=== PATIENT | female | born 1980 | race Caucasian/White ===

== ENCOUNTER → 2023-12-26 11:24 | Outpatient (REF) | payer BC, SELFPAY | LOC: WDC 11:24 | PROVIDERS: ATTENDING PHYSICIAN Family Medicine | DX: Z12.31 Encounter for screening mammogram for malignant neoplasm of breast (principal) | CPT/HCPCS: 77063; 77067 ==

== ENCOUNTER 2024-11-24 17:44 | Emergency (ER) | payer OTHER, SELFPAY ==
[2024-11-24 17:46] VITALS: BP 152/86
--- NOTE | 2024-11-24 20:47 | ED.GENMED ---
History of Present Illness
General
Chief Complaint: Skin Problem
Source: patient
Exam Limitations: none
Time Seen by Provider: 11/24/24 20:18
History of Present Illness
History of Present Illness:
44yoF with no significant past medical history presenting for evaluation of a neck mass. Patient has had a pea-sized lump in her right anterior neck for the past 5 years. She was in the car 3 days ago when she started to notice pain in the area.
The lump is now larger than it typically is and is tender. She went to urgent care yesterday and did not receive any answers. She called to try to get an appointment with vascular surgery today. She is otherwise asymptomatic and denies any
dysphagia, sore throat, fevers, shortness of breath.
Past History
Past History
ED Past Medical History: None
ED Past Surgical History: Negative Appendectomy
Social History
Tobacco: Non-smoker
Alcohol: None
Drug: None
Personal:
Living: with family
Employment: Employed
Family History
Family History: Other (Noncontributory)
Phy Exam
General Physical Exam
General Presentation: well appearing and no apparent distress
General age: appears stated age
General Skin: warm and dry
General Habitus: normal
General Mental: alert
ENT Exam
ENT Exam: normocephalic and other (There is a firm approx 2cm ovoid mass noted to the R anterior neck that is mobile and mildly tenderness. No erythema, warmth, fluctuance. )
Neurological Exam
Neurological Exam: alert
Skin Exam
Skin Exam: normal color and warm/dry
Psychiatric Exam
Psychiatric Exam: normal mood/affect
Course
Orders/Labs/Results
Orders:
Orders
11/24/24 20:35
US Thyroid/Neck/Head Urgent
Reason For Exam: US right anterior neck mass
Vital Signs
Initial and Last Documented VS:
Initial Vital Signs
Temp Pulse Resp BP Pulse Ox
98.2 F 78 16 152/86 100
11/24/24 17:46 11/24/24 17:46 11/24/24 17:46 11/24/24 17:46 11/24/24 17:46
Last Documented Vital Signs
Temp Pulse Resp BP Pulse Ox
98.2 F 78 16 125/82 100
11/24/24 17:46 11/24/24 22:25 11/24/24 17:46 11/24/24 22:25 11/24/24 22:25
MDM/Problems Addressed
Differential Diagnosis Includes:
44yoF here with a neck lump. Has had a small lump for several years that began painful and larger over the past few days. There is a firm mobile ovoid mass at the anterior neck on exam. No overlying erythema, warmth, or fluctuance to suggest
infection. Differential diagnosis includes but is not limited to: Cyst, lipoma, lymphadenopathy
Ultrasound obtained which shows a complex hypoechoic subcutaneous mass. Findings are nonspecific and may reflect lipomatous mass, lymph node, or other neoplasm. Radiology recommending nonemergent CT versus MRI. Findings discussed with patient.
She was advised to follow-up with ENT for further care and contact information provided. ED return precautions reviewed. She was discharged in stable condition.
*Critical Care Note
Total Time (30-74mins, 75-104mins- exclusive of procedures): Not Applicable
ED Attending Note
-
Portions of this chart may have been created with voice recognition software.� Occasional wrong word or��sound alike� substitutions may have occurred due to the inherent limitations of voice recognition software.
Discharge Plan
Departure
Patient Disposition: Home (Routine Discharge)
Date of Disposition: 11/24/24
Time of Disposition: 22:29
Patient with high blood pressure during this ER visit?: Yes
Discharge Problem:
Localized swelling, mass or lump of neck
Prescriptions:
No Action
vit no.[id number] [ Vitamin] 1 EACH tablet
1 ea PO DAILY
ibuprofen 600 MG tablet
600 mg PO Q4HPRN PRN (Reason: moderate pain/cramps) Qty: 30 0RF
Referrals:
Corey Ballesteros MD [Active] -
NONE,* [Family Provider] -
Jesus Cueva MD [Active] -
Activity Restrictions/Additional Instructions:
Please call tomorrow to schedule a follow-up with ENT. You will need further testing regarding this lump.
Return to the ER with any new or worsening symptoms including fevers.
Interventions
Interventions:
*Risk Screen - Suicide Last Done: 11/24/24 19:12
*General Assessment Last Done: 11/24/24 19:12
*Neglect/Abuse Screening Last Done: 11/24/24 19:12
*ED- Fall Risk Assessment Last Done: 11/24/24 19:12
*ED COVID-19 Vaccine History Last Done: 11/24/24 19:12
*Nursing Disposition Last Done: 11/24/24 22:34
ED-Skin Assessment Last Done: 11/24/24 22:34
Discharge Date and Time
Discharge Date/Time: 11/24/24 22:35
Print Language: CHINESE
[2024-11-24 22:25] VITALS: BP 125/82
== END 2024-11-24 22:35 | disposition home or self-care (01) ==
LOC: EMR 17:44
PROVIDERS: EMERGENCY PHYSICIAN Emergency Medicine
DX: R22.1 Localized swelling, mass and lump, neck (principal); R03.0 Elevated blood-pressure reading, without diagnosis of hypertension
CPT/HCPCS: 99284; 76536

== ENCOUNTER → 2024-12-07 11:35 | Outpatient (REF) | payer OTHER, SELFPAY | LOC: RAD 11:35 | PROVIDERS: ATTENDING PHYSICIAN Otolaryngology | DX: R22.1 Localized swelling, mass and lump, neck (principal) | CPT/HCPCS: 70491; Q9967 ==

== ENCOUNTER → 2024-12-29 10:55 | Outpatient (REF) | payer OTHER, SELFPAY | LOC: WDC 10:55 | PROVIDERS: ATTENDING PHYSICIAN Nurse Practitioner Adult Health | DX: Z12.31 Encounter for screening mammogram for malignant neoplasm of breast (principal) | CPT/HCPCS: 77063; 77067 ==

== ENCOUNTER 2025-07-02 06:24 | Day surgery (SDC) | payer OTHER, SELFPAY | END 2025-07-02 09:22 | disposition home or self-care (01) | LOC: GI 06:24 | PROVIDERS: ATTENDING PHYSICIAN Internal Medicine Gastroenterology; FAMILY PHYSICIAN Physician Assistant | DX: Z12.11 Encounter for screening for malignant neoplasm of colon (principal); K64.9 Unspecified hemorrhoids; D12.2 Benign neoplasm of ascending colon; D12.3 Benign neoplasm of transverse colon | CPT/HCPCS: 45385; 88305 ==